=== PATIENT | female | born 1965 | race Caucasian/White ===

== ENCOUNTER 2022-02-19 10:49 | Emergency (ER) | payer MEDICAID ==
[~2022-02-19] VITALS: Ht 175.3 cm; Wt 100.0 kg
[~2022-02-19 10:49] MED LIST: CITA-144 PO; CLON-441 PO; FERR325T27 PO
[2022-02-19] MEDS ORDERED: LEVO50 PO (11:07)
[2022-02-19] MEDS ORDERED: DICY20TA95 PO (11:07)
[2022-02-19] MEDS ORDERED: SERT-158 PO (11:07)
[2022-02-19] MEDS ORDERED: HYDR-4808 PO (11:07)
[2022-02-19 11:30] LABS: EOSINOPHILS % (AUTO) 3.6 % (1.0-6.0); HEMATOCRIT 38.2 % (36-46); HEMOGLOBIN 12.6 g/dL (12.0-16.0); LYMPHOCYTES # (AUTO) 2.7 K/uL (1.0-4.8); LYMPHOCYTES % (AUTO) 34.1 % (22.0-44.0); MEAN CORPUSCULAR HEMOGLOBIN 26.8 pg (26.0-34.0); MEAN CORPUSCULAR VOLUME 81 fL (80-100); MONOCYTES # (AUTO) 0.6 K/uL (0.1-1.0); NEUTROPHILS # (AUTO) 4.3 K/uL (1.8-7.7); NEUTROPHILS % (AUTO) 54.3 % (40.0-70.0); PLATELET COUNT (AUTO) 332 K/uL (150-450); RED CELL DISTRIBUTION WIDTH 15.9 % (11.5-14.5)
[2022-02-19 11:52] LABS: ANION GAP 12 mmol/L (8-16); CALCIUM, TOTAL 9.1 mg/dL (8.8-10.5); CARBON DIOXIDE 23 mmol/L (22-29); CHLORIDE 101 mmol/L (98-107); CREATININE 0.89 mg/dL (0.60-1.30); GLUCOSE,RANDOM 109 mg/dL (70-110); POTASSIUM 3.6 mmol/L (3.5-5.1); SODIUM SERUM 136 mmol/L (136-145); UREA NITROGEN, BLOOD 16 mg/dL (7-18)
[2022-02-19 12:02] LABS: ALANINE AMINOTRANSFERASE 42 U/L (12-78); ALBUMIN 3.8 g/dL (3.4-5.0); ALKALINE PHOSPHATASE 93 U/L (46-116); ASPARTATE AMINOTRANSFERASE 32 U/L (15-37); BILIRUBIN,TOTAL 0.2 mg/dL (0.1-1.0); HCG,QUANTITATIVE 2 mIU/mL (0-6); LIPASE 118 U/L (73-393); TOTAL PROTEIN, SERUM 7.7 g/dL (6.4-8.2)
[2022-02-19 12:09] LABS: GLOMERULAR FILTR. RATE CALC > 60 mL/min (>60)
[2022-02-19] MEDS ORDERED: SODIUM CHLORIDE 0.9% 3,000 ML IV ONE (12:15)
[2022-02-19] MEDS ORDERED: MORPHINE SULFATE 4 MG/ML SYRINGE IVP ONE (12:30)
[2022-02-19] MEDS ORDERED: ONDANSETRON HCL 4 MG/2 ML VIAL IVP ONE (12:30)
[2022-02-19 12:58] LABS: LACTIC ACID 1.5 mmol/L (0.4-2.0)
[2022-02-19] MEDS ORDERED: SODIUM CHLORIDE 0.9% 100 ML ONE (12:59)
[2022-02-19] MEDS ORDERED: IOHEXOL 350 MG/ML 100 ML VIAL ONE (12:59)
[2022-02-19 14:13] LABS: APPEARANCE,URINE CLEAR (CLEAR); BILIRUBIN,URINE NEGATIVE (NEGATIVE); GLUCOSE, URINE (UA) NEGATIVE (NEGATIVE); KETONES,URINE NEGATIVE (NEGATIVE); LEUKOCYTE ESTERASE ,URINE NEGATIVE (NEGATIVE); NITRATE,URINE NEGATIVE (NEGATIVE); OCCULT BLOOD,URINE NEGATIVE (NEGATIVE); PH,URINE 5.5 (5.0-8.0); PROTEIN,URINE NEGATIVE (NEGATIVE); SPECIFIC GRAVITIY, URINE 1.015 (1.003-1.030); UROBILINOGEN,URINE <=1.0 mg/dL (<=1.0)
[2022-02-19 14:15] LABS: THYROID STIMULATING HORMONE 4.19 uIU/mL (0.36-3.74)
[2022-02-19 15:29] VITALS: BP 143/63
== END 2022-02-19 16:03 | disposition home or self-care (01) ==
LOC: EMS 10:54
DX: R10.2 Pelvic and perineal pain (principal); G89.29 Other chronic pain; F31.9 Bipolar disorder, unspecified; J45.909 Unspecified asthma, uncomplicated; Z88.1 Allergy status to other antibiotic agents; Z88.2 Allergy status to sulfonamides; Z88.6 Allergy status to analgesic agent
CPT/HCPCS: 80053; 81003; 83605; 83690; 84443; 84484; 84702; 85025; 87040; 36415; 74177; 76856; 99285; 93005; 96361; 96374; 96375; J2270; J2405; Q9967; J7030; J7050